=== PATIENT | female | born 1940 | race Caucasian/White ===

== ENCOUNTER 2016-07-02 09:00 | Outpatient (RCR) | payer MEDICARE, OTHER | END 2016-07-30 | disposition still patient (30) | LOC: WSPT | DX: M46.1 Sacroiliitis, not elsewhere classified (principal); M25.552 Pain in left hip | CPT/HCPCS: G0283-GP; G8978-GP; G8979-GP ==

== ENCOUNTER 2016-10-04 09:15 | Outpatient (RCR) | payer MEDICARE, OTHER | END 2016-10-10 09:00 | disposition home or self-care (01) | LOC: WSPT 09:15 | DX: M25.552 Pain in left hip (principal) | CPT/HCPCS: G8978-GP; G8979-GP; G8980-GP ==

== ENCOUNTER → 2016-10-26 | Outpatient (CLI) | payer MEDICARE, OTHER | LOC: COL.RAD 10:26 | DX: M79.661 Pain in right lower leg (principal); R60.0 Localized edema ==

== ENCOUNTER → 2017-04-28 | Outpatient (CLI) | payer MEDICARE, OTHER | LOC: MC.RAD 14:54 | DX: Z12.31 Encounter for screening mammogram for malignant neoplasm of breast (principal) ==

== ENCOUNTER → 2017-07-01 | Outpatient (CLI) | payer MEDICARE, OTHER ==
[2017-07-01 15:52] LABS: HIV 1/2 Antibodies Non-Reactive; HIV-1p24 Antigen Non-Reactive
== END ==
LOC: COL.LAB 14:48
PROVIDERS: Orthopaedic Surgery
DX: Z01.812 Encounter for preprocedural laboratory examination (principal); M17.12 Unilateral primary osteoarthritis, left knee

== ENCOUNTER 2017-07-10 10:15 | Outpatient (RCR) | payer MEDICARE, OTHER | END 2017-07-10 11:52 | disposition home or self-care (01) | LOC: WSPT 10:15 | DX: Z47.89 Encounter for other orthopedic aftercare (principal); Z96.652 Presence of left artificial knee joint | CPT/HCPCS: G8978-GP; G8979-GP; G8980-GP ==

== ENCOUNTER 2017-09-12 11:00 | Outpatient (RCR) | payer MEDICARE, OTHER | END 2017-09-12 14:04 | disposition home or self-care (01) | LOC: WSPT 11:00 | DX: Z47.89 Encounter for other orthopedic aftercare (principal); Z96.652 Presence of left artificial knee joint | CPT/HCPCS: G8978-GP; G8979-GP; G8980-GP ==

== ENCOUNTER → 2017-12-26 | Outpatient (CLI) | payer MEDICARE, OTHER ==
[2017-12-26 17:14] LABS: HIV 1/2 Antibodies Non-Reactive; HIV-1p24 Antigen Non-Reactive
== END ==
LOC: COL.LAB 16:16
PROVIDERS: Orthopaedic Surgery
DX: Z01.812 Encounter for preprocedural laboratory examination (principal); M17.11 Unilateral primary osteoarthritis, right knee

== ENCOUNTER 2017-12-30 10:28 | Outpatient (RCR) | payer MEDICARE, OTHER | END 2017-12-31 08:53 | disposition home or self-care (01) | LOC: WSPT 10:28 | DX: Z01.818 Encounter for other preprocedural examination (principal); M17.11 Unilateral primary osteoarthritis, right knee | CPT/HCPCS: G8978-GP; G8979-GP ==

== ENCOUNTER → 2018-06-03 | Outpatient (CLI) | payer MEDICARE, OTHER | LOC: MC.RAD 14:16 | DX: Z12.31 Encounter for screening mammogram for malignant neoplasm of breast (principal) ==

== ENCOUNTER → 2019-03-04 | Outpatient (CLI) | payer MEDICARE, OTHER | LOC: COL.RAD 07:30 | DX: K86.2 Cyst of pancreas (principal); N28.89 Other specified disorders of kidney and ureter; R19.07 Generalized intra-abdominal and pelvic swelling, mass and lump | CPT/HCPCS: A9585 ==

== ENCOUNTER → 2019-08-20 | Outpatient (CLI) | payer MEDICARE, OTHER | LOC: MC.RAD 12:53 | DX: Z12.31 Encounter for screening mammogram for malignant neoplasm of breast (principal) ==

== ENCOUNTER → 2021-08-09 | Outpatient (CLI) | payer MEDICARE, OTHER | LOC: MC.RAD 11:11 | DX: Z12.31 Encounter for screening mammogram for malignant neoplasm of breast (principal); N63.20 Unspecified lump in the left breast, unspecified quadrant ==

== ENCOUNTER → 2021-08-13 | Outpatient (RCR) | payer MEDICARE, OTHER | END | disposition home or self-care (01) | LOC: WSPT | DX: M25.551 Pain in right hip (principal) ==

== ENCOUNTER → 2021-08-15 | Outpatient (CLI) | payer MEDICARE, OTHER | LOC: MC.RAD 13:50 | DX: N63.20 Unspecified lump in the left breast, unspecified quadrant (principal) ==

== ENCOUNTER → 2021-09-10 | Outpatient (RCR) | payer MEDICARE, OTHER | END | disposition home or self-care (01) | LOC: WSPT | DX: M25.551 Pain in right hip (principal) ==

== ENCOUNTER 2021-10-10 14:15 | Outpatient (RCR) | payer MEDICARE, OTHER | END 2021-10-11 | disposition still patient (30) | LOC: WSPT | DX: M25.551 Pain in right hip (principal) ==

== ENCOUNTER → 2021-10-22 13:12 | Outpatient (RCR) | payer MEDICARE, OTHER | END | disposition home or self-care (01) | LOC: WSPT 08:00 | DX: M25.551 Pain in right hip (principal) ==

== ENCOUNTER → 2022-03-11 | Outpatient (CLI) | payer MEDICARE, OTHER | LOC: MC.RAD 08:58 | DX: R92.8 Other abnormal and inconclusive findings on diagnostic imaging of breast (principal) ==

== ENCOUNTER → 2022-08-22 | Outpatient (CLI) | payer MEDICARE, OTHER | LOC: MC.RAD 09:51 | DX: N63.20 Unspecified lump in the left breast, unspecified quadrant (principal); Z98.890 Other specified postprocedural states ==

== ENCOUNTER 2023-09-24 10:56 | Outpatient (RCR) | payer MEDICARE, OTHER ==
[~2023-09-24 10:56] MED LIST: ASPIRIN 81M81 MG/TA2 PO; BACTRIM DS 8001 TAB PO; CALCIUM WITH D31 CTB; CEFTIN500 MG PO; VITAMIN C500 MG PO
== END 2023-10-12 | disposition home or self-care (01) ==
LOC: WSPT
DX: M16.11 Unilateral primary osteoarthritis, right hip (principal)

== ENCOUNTER → 2023-11-04 | Outpatient (CLI) | payer MEDICARE, OTHER | LOC: MC.RAD 12:53 | DX: Z12.31 Encounter for screening mammogram for malignant neoplasm of breast (principal) ==